=== PATIENT | female | born 1990 | race Caucasian/White ===

== ENCOUNTER 2017-04-20 11:32 | Inpatient (IN) | payer BC ==
[~2017-04-20] VITALS: Ht 154.9 cm; Wt 106.8 kg
[2017-04-20] VITALS (36 sets, daily range): BP systolic 115–142; BP diastolic 57–81; PULSE 56–96; TEMP 97.3–98.3
[2017-04-20] MEDS ORDERED: PRENATAL (11:53)
[2017-04-20] MEDS ORDERED: SYNTHROID0.1 MG/TAB PO (11:53)
[2017-04-20 15:12] LABS: HEMOGLOBIN 12.4 g/dl (12.5-16.0); MEAN CELL VOLUME 85 fl (80.0-100.0); MEAN CORPUSCULAR HEMOGLOBIN 29 pg (27.0-31.0); MEAN CORPUSCULAR HGB CONC 34 g/dl (33.0-37.0); MEAN PLATELET VOLUME 12.4 fl (7.4-10.4); PLATELET COUNT 176 K/mm3 (130-400); RED BLOOD COUNT 4.26 M/mm3 (4.10-5.30); REDCELL DISTRIBUTION WIDTH-CV 14.2 % (11.5-14.5); WHITE BLOOD COUNT 13.4 K/mm3 (4.8-10.8)
[2017-04-20 15:15] LABS: ADD PATHOLOGY DIFF REVIEW NO
[2017-04-20 16:40] LABS: BAND 8 % (0-10); METAMYELOCYTE 1 % (0-0); MYELOCYTE 1 % (0-0)
[2017-04-20 16:48] LABS: DOHLE BODIES PRESENT; NEUTROPHILS 85 % (42.0-75.2); TOTAL CELLS COUNTED 100; TOXIC GRANULATION PRESENT
[2017-04-20 16:49] LABS: PLATELET ESTIMATE NORMAL (NORMAL)
[2017-04-21] VITALS (12 sets, daily range): BP systolic 106–138; BP diastolic 56–68; PULSE 65–86; TEMP 97.5–99.3
[2017-04-22 06:55] VITALS: BP 110/54; PULSE 85; TEMP 98.8
[2017-04-22] MEDS ORDERED: IBU600 MG PO (08:59)
[2017-04-22] MEDS ORDERED: PERCOCET 325 MG1 TA2 PO (08:59)
== END 2017-04-22 11:55 | disposition home or self-care (01) | DRG 775 ==
LOC: LDRO 11:32 → OB 14:13 → LDR 14:13 → OB 04-21 03:25 → LDRO 04-21 10:18 → OB 04-22 11:55
PROVIDERS: Student in an Organized Health Care Education/Training Program
PROC: 10E0XZZ Delivery of Products of Conception, External Approach (ICD-10-PCS; principal; 2017-04-20)
PROC: 0KQM0ZZ Repair Perineum Muscle, Open Approach (ICD-10-PCS; 2017-04-20)
DX: O99.284 Endocrine, nutritional and metabolic diseases complicating childbirth (principal); O36.0130 Maternal care for anti-D [Rh] antibodies, third trimester, not applicable or unspecified; E03.9 Hypothyroidism, unspecified; O70.1 Second degree perineal laceration during delivery; Z3A.39 39 weeks gestation of pregnancy; Z37.0 Single live birth
CPT/HCPCS: J2405; J2590; J2791; J7120

== ENCOUNTER 2018-10-28 05:01 | Inpatient (IN) | payer BC ==
[2018-10-28] VITALS (9 sets, daily range): BP systolic 120–144; BP diastolic 59–87; PULSE 77–110; TEMP 98–98.2
[~2018-10-28] VITALS: Ht 170.2 cm; Wt 111.4 kg
--- NOTE | 2018-10-28 05:00 | NUR ---
0500 G2L1 38.6 WEEK GEST TO LR3 WITH C/O CONTRACTIONS STARTING AROUND MIDNIGHT AND BECOMING INTENSE AROUND 0200. BOW INTACT. TO BR TO VOID. ALMOST BEARING DOWN WITH CONTRACTION 0515 TO BED AND EFM ON. UNABLE TO FIND FHT'S PER 2 NURSES. SVE /-[address] GOMEZ NOTIFIED OF ADM AND SVE. ORDER TO ADM AND START IV AND EPID OK 0526 DR GOMEZ NOTIFIED AGAIN OF INABILITY TO FIND FHT'S AND NEED FOR HER TO COME TO HOSPITAL. STATES IS COMING NOW.
[~2018-10-28 05:01] MED LIST: IBU600 MG PO; PERCOCET 325 MG1 TA2 PO; PRENATAL; SYNTHROID0.1 MG/TAB PO
--- NOTE | 2018-10-28 05:40 | NUR ---
0540 IV FLUIDS STARTED AND LAB DRAWN. STILL UNABLE TO OBTAIN FHT'S. VERY LIGHT HEADED AND O2 ON PER MASK FOR COMFORT.
--- NOTE | 2018-10-28 05:51 | NUR ---
0551 SROM WITH SM AMOUNT BLOODY FLUID. 0552 DR GOMEZ NOTIFIED TO COME TO HOSPITAL. STATES IS CLOSE BY. VERY PUSHY WITH CONTRACTIONS. 0555 DR GOMEZ HERE. READIED FOR DEL 0600 DEL STILLBORN FEMALE WITH 0/0/0 APGARS. BABY TO NSY WITH DR GRAY IN ATTENDENCE. PT REMAINS IN LR3 WITH IV INFUSING. 0610 PLACENTA DELIVERED.
--- NOTE | 2018-10-28 06:00 | NUR ---
Dr. Park notified prior to infants delivery in anticipation of need for resuscitation. Female born via at 0600, assisted by Dr. Joy. Per L & D RN's, no heart tones detected prior to delivery. Upon delivery, noted to be flaccid, no heart rate, no cry, no respritory effort, mottled coloring noted. Infant immediately dried and stimualted. taken to nursery at 0601 where staff had prepared for resuscitation efforts. placed under radiant warmer and stimulation continued. Skin noted to be peeling over entire body. No heart tones or breath sounds noted. Dr. Park into nursery at 0602 and assessed . Further resuscitation efforts not started per physician.
[2018-10-28 06:26] LABS: BASO % 0.2 % (0.0-2.0); EOS % 0.3 % (0-4.0); LYMPH # 1.1 (1.2-3.4); LYMPH % 10.7 % (20.0-51.0); MEAN CELL VOLUME 77 fl (80.0-100.0); MEAN CORPUSCULAR HGB CONC 32 g/dl (33.0-37.0); MONO # 0.7 (0.1-0.6); MONO % 6.9 % (1.7-9.3); PLATELET COUNT 179 K/mm3 (130-400); RED BLOOD COUNT 3.95 M/mm3 (4.10-5.30)
[2018-10-28 06:27] LABS: HEMATOCRIT 30.4 % (37.0-47.0); HEMOGLOBIN 9.8 g/dl (12.5-16.0); MEAN CORPUSCULAR HEMOGLOBIN 25 pg (27.0-31.0)
[2018-10-28 06:49] LABS: UMBILICAL ARTERY ABG PCO2 78.9 mmHg (30-65); UMBILICAL ARTERY ABG PO2 17.8 mmHg (50-75)
[2018-10-28 06:53] LABS: UMBILICAL ARTERY ABG pH 6.52 (7.28-7.45)
--- NOTE | 2018-10-28 07:01 | NUR ---
0640- Report from Zandra Pierce RN and care of patient assumed at this time. RN at bedside to introduce self and review plan of care. Discussed options for patient wishes. Consents explained and signed. Patient and deny questions at this time. 0700- Chaplain Chan at bedside per family request.
--- NOTE | 2018-10-28 07:56 | NUR ---
[facility] teaching music lessons pathologist notified that patient may request chromosomal testing. Request for orders on how to preserve tissue sample collected by Dr. Joy. Orders to send sample to lab with path request sheet and lab will put on correct medium. [facility] will come collect sample this afternoon.
[2018-10-28] MEDS ORDERED: LEVOXYL0.125 MG PO (09:51)
[2018-10-28] MEDS ORDERED: PERCOCET 325 MG1 TA2 PO (11:41)
[2018-10-28] MEDS ORDERED: IBU800 M1 PO (11:41)
[2018-10-28 12:03] LABS: ALBUMIN 3.2 gm/dL (3.5-5.0); BILIRUBIN,TOTAL 0.6 mg/dL (0.0-1.0); CALCIUM 8.7 mg/dL (8.4-10.2); CREATININE, serum 0.42 (0.52-1.25); POTASSIUM 3.7 mmol/L (3.4-5.0); TOTAL PROTEIN 6.3 gm/dL (6.4-8.2)
[2018-10-28 12:33] LABS: THYROID STIMULATING HORMONE 4.26 uIU/mL (0.465-4.680)
--- NOTE | 2018-10-28 18:20 | NUR ---
Report received from Flor, RN 1825: Joe to nurses desk stating they were ready for home to be notified and come to hopsital. Manny from [facility] notified. 1839: Manny to LDR 1 and discussed further plans. 1909: Manny off unit with baby. 0: Discharge instructions and perscriptions given to pt and who verbalize understanding and denies any furher questions. Pt assisted off unit and to car by this RN.
[2018-10-29 13:14] LABS: HOMOCYSTEINE 6.1 umol/L (4.0-14.0)
[2018-10-30 12:33] LABS: PT G20210A MUTATION B Negative (Negative)
[2018-10-31 13:06] LABS: RPR (VDRL) XXX
[2018-10-31 13:37] LABS: LUPUS ANTICOAGULANT PT 10.6 sec (())
[2018-10-31 19:10] LABS: TOXOPLASMA AB, IGG Negative (Negative); TOXOPLASMA AB, IGM Negative (Negative)
[2018-10-31 20:15] LABS: BETA-2 GPI IGG AABS <9.4 U/mL (()); BETA-2 GPI IGM AABS <9.4 U/mL (())
== END 2018-10-28 19:40 | disposition home or self-care (01) | DRG 806 ==
LOC: LDRO 05:01 → LDR 05:22
PROVIDERS: Obstetrics & Gynecology; ADMIT Student in an Organized Health Care Education/Training Program
PROC: 10E0XZZ Delivery of Products of Conception, External Approach (ICD-10-PCS; principal; 2018-10-28)
PROC: 0HQ9XZZ Repair Perineum Skin, External Approach (ICD-10-PCS; 2018-10-28)
DX: O36.8130 Decreased fetal movements, third trimester, not applicable or unspecified (principal); O36.4XX0 Maternal care for intrauterine death, not applicable or unspecified; Z37.1 Single stillbirth; O69.89X0 Labor and delivery complicated by other cord complications, not applicable or unspecified; Z3A.38 38 weeks gestation of pregnancy; O62.3 Precipitate labor; O99.284 Endocrine, nutritional and metabolic diseases complicating childbirth; E03.9 Hypothyroidism, unspecified; O70.0 First degree perineal laceration during delivery
CPT/HCPCS: J2590; J2791; J7120

== ENCOUNTER 2020-03-11 11:42 | Inpatient (IN) | payer BC ==
[~2020-03-11] VITALS: Ht 170.2 cm; Wt 114.5 kg
[2020-03-11] VITALS (25 sets, daily range): BP systolic 102–138; BP diastolic 58–90; PULSE 67–102; TEMP 97.8–99.1
[~2020-03-11 11:42] MED LIST changes: +IBU800 M1 PO; +LEVOXYL0.125 MG PO
[2020-03-11] MEDS ORDERED: NATURAL IRON65 MG (16:34)
[2020-03-11 16:56] LABS: BASO % 0.3 % (0.0-2.0); EOS # 0.1 (0.0-0.7); EOS % 0.9 % (0-4.0); GRAN # 6.6 (1.4-6.5); GRAN % 72.9 % (42.2-75.2); HEMOGLOBIN 10.7 g/dl (12.5-16.0); LYMPH # 1.6 (1.2-3.4); LYMPH % 17.2 % (20.0-51.0); MEAN CELL VOLUME 83 fl (80.0-100.0); MEAN CORPUSCULAR HEMOGLOBIN 26 pg (27.0-31.0); MEAN CORPUSCULAR HGB CONC 32 g/dl (33.0-37.0); MONO # 0.7 (0.1-0.6); PLATELET COUNT 190 K/mm3 (130-400); RED BLOOD COUNT 4.09 M/mm3 (4.10-5.30); REDCELL DISTRIBUTION WIDTH-CV 16.3 % (11.5-14.5)
[2020-03-11 17:58] LABS: HEMATOCRIT 33.9 % (37.0-47.0)
[2020-03-12] VITALS (10 sets, daily range): BP systolic 106–127; BP diastolic 53–76; PULSE 71–93; TEMP 97.7–98.5
[2020-03-13 00:10] VITALS: BP 112/59; PULSE 76; TEMP 98.5
[2020-03-13 07:45] VITALS: BP 109/65; PULSE 73; TEMP 97.9
[2020-03-13] MEDS ORDERED: IBU800 M1 PO (08:40)
== END 2020-03-13 15:45 | disposition home or self-care (01) | DRG 806 ==
LOC: ZCOL.LAB 11:42 → EDSTATUS 16:36 → OB 16:38 → LDR 16:38 → OB 03-12 03:00
PROVIDERS: ADMIT Student in an Organized Health Care Education/Training Program
PROC: 10907ZC Drainage of Amniotic Fluid, Therapeutic from Products of Conception, Via Natural or Artificial Opening (ICD-10-PCS; principal; 2020-03-11)
PROC: 10E0XZZ Delivery of Products of Conception, External Approach (ICD-10-PCS; 2020-03-11)
DX: O41.8X30 Other specified disorders of amniotic fluid and membranes, third trimester, not applicable or unspecified (principal); O99.354 Diseases of the nervous system complicating childbirth; Z37.0 Single live birth; O99.284 Endocrine, nutritional and metabolic diseases complicating childbirth; E03.9 Hypothyroidism, unspecified; O99.214 Obesity complicating childbirth; E66.9 Obesity, unspecified; O99.02 Anemia complicating childbirth; D64.9 Anemia, unspecified; G43.909 Migraine, unspecified, not intractable, without status migrainosus; O26.893 Other specified pregnancy related conditions, third trimester; Z67.91 Unspecified blood type, Rh negative; Z3A.37 37 weeks gestation of pregnancy
CPT/HCPCS: J0330; J0690; J1885; J2405; J2590; J2704; J2791; J7120

== ENCOUNTER 2023-10-05 14:00 | Outpatient (RCR) | payer BC ==
[2023-09-30 10:48] VITALS: BP 118/60; PULSE 82; TEMP 98.2
[2023-10-03 11:21] VITALS: BP 121/65; PULSE 90; TEMP 97.8
[~2023-10-05] VITALS: Ht 170.2 cm; Wt 115.0 kg
[~2023-10-05 14:00] MED LIST changes: +ASPIRIN E.C. 8181 MG PO; +Iron Sucrose 200 MG in NS 100 ML Over 15 minutes IV ONE; +MAGNESIUM200 MG PO; +NATURAL IRON65 MG
[2023-10-05 14:28] VITALS: BP 121/64; PULSE 85; TEMP 98
[2023-10-05] MEDS ORDERED: Iron Sucrose 200 MG in NS 100 ML Over 15 minutes IV ONE (14:45)
== END 2023-10-05 15:11 | disposition home or self-care (01) ==
LOC: EUO 14:00
DX: D50.9 Iron deficiency anemia, unspecified (principal)
CPT/HCPCS: J1756

== ENCOUNTER 2023-10-19 11:11 | Inpatient (IN) | payer BC ==
[~2023-10-19] VITALS: Ht 175.3 cm; Wt 116.4 kg
[~2023-10-19 11:11] MED LIST changes: -Iron Sucrose 200 MG in NS 100 ML Over 15 minutes IV ONE
[2023-10-20] VITALS (31 sets, daily range): BP systolic 100–145; BP diastolic 52–85; PULSE 75–108; TEMP 97.8–98.2
--- NOTE | 2023-10-20 09:40 | NUR ---
Pt arrived on unit ambulatory for scheduled induction. Pt reports occasional contractions, denies any leaking of fluid or vaginal bleeding and reports normal movement. EFM and toco monitor started. Vital signs WNL. Plan of care for induction reviewed. Pt verbalized an understanding, agreed with the plan and states no questions or concerns at this time.
[2023-10-20] MEDS ORDERED: LR 1,000 ML IV SCH (09:45)
[2023-10-20] MEDS ORDERED: LR & Oxytocin 500 ML IV SCH (09:45)
[2023-10-20 10:50] LABS: BASO % 0.4 % (0.0-2.0); EOS % 0.4 % (0.0-4.0); GRAN # 4.2 K/mm3 (1.4-6.5); GRAN % 76.1 % (42.2-75.2); HEMOGLOBIN 11.5 g/dl (12.5-16.0); LYMPH # 0.6 K/mm3 (1.2-3.4); LYMPH % 9.9 % (20.0-51.0); MEAN CELL VOLUME 86 fl (80.0-100.0); MEAN CORPUSCULAR HEMOGLOBIN 28 pg (27-31); MEAN CORPUSCULAR HGB CONC 33 g/dl (33.0-37.0); MEAN PLATELET VOLUME 12.8 fl (7.4-10.4); MONO # 0.7 K/mm3 (0.1-0.6); MONO % 12.5 % (1.7-9.3); PLATELET COUNT 129 K/mm3 (130-400); RED BLOOD COUNT 4.07 M/mm3 (4.10-5.30); REDCELL DISTRIBUTION WIDTH-CV 18.7 % (11.5-14.5)
--- NOTE | 2023-10-20 13:05 | NUR ---
Dr. Armijo at the bedside. FHR tracing reviewed. SVE done and AROM with clear fluid per Dr. Armijo. Plan of care reviewed.
--- NOTE | 2023-10-20 13:48 | NUR ---
1342- Pt sitting on the edge of the bed for epidural placement. ANAMARIA Nails at the bedside. Time out done. 1343- Difficult tracing FHR tracing due to maternal position. SPO2 monitor started. 1348- Single shot done per ANAMARIA Nails. See anesthesia records for details. 1353- Assisted pt back to supine position with left wedge. EFM and toco monitor adjusted.
[2023-10-20] MEDS ORDERED: ROPivacaine PF 0.2% 200 ML IV ONE (13:54)
[2023-10-20] MEDS ORDERED: Ondansetron 4 MG/2 ML VIAL IV PRN (14:15)
[2023-10-20] MEDS ORDERED: diphenhydrAMINE 50 MG/ML 1 ML VIAL IV PRN (14:15)
[2023-10-20] MEDS ORDERED: Naloxone 0.4 MG/ML VIAL IV PRN ×2 (14:15→19:00)
[2023-10-20] MEDS ORDERED: ePHEDrine 50 MG/10 ML VIAL IV PRN (14:15)
[2023-10-20] MEDS ORDERED: diphenhydrAMINE 25 MG CAP PO PRN (14:15)
[2023-10-20] MEDS ORDERED: Acetaminophen 500 MG TAB PO SCH (19:00)
[2023-10-20] MEDS ORDERED: Measles/Mumps/Rubella Virus Vaccine Live w Diluent 0.5 ML VIAL SQ SCH (19:00)
[2023-10-20] MEDS ORDERED: Loratadine 10 MG TAB PO PRN (19:00)
[2023-10-20] MEDS ORDERED: Ibuprofen 800 MG TAB PO SCH (19:00)
[2023-10-20] MEDS ORDERED: Mag/Al Hydrox/Simeth Susp 30 ML CUP PO PRN (19:00)
[2023-10-20] MEDS ORDERED: Witch Hazel 50% Pads Bulk TUB TP PRN (19:00)
[2023-10-20] MEDS ORDERED: Phenylephrine/Mineral Oil/Petrolatum 57 GM TUBE RC PRN (19:00)
[2023-10-20] MEDS ORDERED: Magnes Hydrox (MOM) 80 MG/ML 30 ML CUP PO PRN (19:00)
--- NOTE | 2023-10-20 19:41 | NUR ---
183 PATIENT FEELING PAIN IN RIGHT HIP. SVE COMPLETE/100/+1. DR KOCH CALLED TO COME FOR DELIVERY. LEANDRO RUIZ. PERINEAM PREPPED FOR DELIVERY. WAITING FOR DRWilfredo 184 DR. KOCH HERE FOR DELIVERY. PREPPED AND READY. WILL PUSH WITH NEXT CONTRACTIONS. 184 BABY GIRL BORN VIA BY DR KOCH. BABY TO MOMS CHEST AT THIS TIME. CORD CLAMPED AND CUT BY DR Villalobos STRONG CRY NOTED. INTACT PERINEAM. 184 PLACENTA DELIVERED AT THIS TIME. PITOCIN 333/PROTOCOL. FUNDUS FIRM AND BLEEDING WNL. DENIES NEEDS
--- NOTE | 2023-10-20 20:04 | NUR ---
2000 REPORT GIVEN TO Tawana ALLRED RN TO ASSUME CARE AT THIS TIME.
[2023-10-20] MEDS ORDERED: traZODone 50 MG TAB PO PRN (21:00)
--- NOTE | 2023-10-20 21:45 | NUR ---
EPIDURAL REMOVED, BLUE TIP INTACT. PT UNABLE TO LIFT LEGS THEY REMAIN NUMB FROM EPIDURAL. PT STATES THAT WITH PREVIOUS DELIVERY SHE HAS TAKEN 7 HOURS FOR FEELING TO RETURN TO HER LEGS. PT UP TO BATHROOM VIA James VEGAS RN IN ROOM TO ASSIST. PT UNABLE TO VOID, PERICARE PROVIDED. STRAIGHT CATH PERFORMED, 200MLS, JOSE URINE OUT. PERICARE PROVIDED, ICE PACK, PERIPAD, MESH UNDERWEAR, AND CLEAN GOWN ON. 2215- PT TO VIA FAIZAN CROOK. ORIENTED TO ROOM. INSTRUCTED TO CONTACT STAFF WHEN SHE NEEDS TO GET UP TO THE BATHROOM. UNDERSTANDING VERBALIZED. PT DENIES PAIN OR NEED FOR MEDICATION AT THIS TIME.
[2023-10-20] MEDS ORDERED: Rho(D) Imm Globulin 1,500 UNITS (300 MCG)/2 ML SYRINGE IV\\IM SCH (21:54)
[2023-10-21 01:15] VITALS: BP 112/58; PULSE 78; TEMP 98.2
[2023-10-21] MEDS ORDERED: Sennosides/Docusate 8.6-50 MG TAB PO SCH (08:00)
[2023-10-21 08:30] VITALS: BP 116/70; PULSE 78
--- NOTE | 2023-10-21 09:18 | NUR ---
Initial visit; Parents thanked Sample Book Maker for offering congratulations and God's blessings for the of their daughter. Sample Book Maker thanked family for choosing [facility] and wishes them a wonderful Easter.
[2023-10-21 16:30] VITALS: BP 115/73; PULSE 74
[2023-10-22 07:00] VITALS: BP 124/61; PULSE 69; TEMP 98
--- NOTE | 2023-10-22 11:45 | NUR ---
DC INSTRUCTIONS REVIEWED. PT AGREES. PT AMBULATORY TO CAR.
== END 2023-10-22 12:00 | disposition home or self-care (01) | DRG 807 ==
LOC: OB 11:11 → LDR 10-20 09:28 → OB 10-20 14:54
PROVIDERS: ADMIT Student in an Organized Health Care Education/Training Program
PROC: 10E0XZZ Delivery of Products of Conception, External Approach (ICD-10-PCS; principal; 2023-10-20)
PROC: 10907ZC Drainage of Amniotic Fluid, Therapeutic from Products of Conception, Via Natural or Artificial Opening (ICD-10-PCS; 2023-10-20)
PROC: 3E033VJ Introduction of Other Hormone into Peripheral Vein, Percutaneous Approach (ICD-10-PCS; 2023-10-20)
DX: O99.284 Endocrine, nutritional and metabolic diseases complicating childbirth (principal); Z37.0 Single live birth; O99.214 Obesity complicating childbirth; Z3A.38 38 weeks gestation of pregnancy; E03.9 Hypothyroidism, unspecified; O99.02 Anemia complicating childbirth; O26.893 Other specified pregnancy related conditions, third trimester; Z67.11 Type A blood, Rh negative
CPT/HCPCS: J2590; J2791; J2795; J7120